=== PATIENT | male | born 1970 | race Caucasian/White ===

== ENCOUNTER 2020-04-30 08:02 | Emergency (ER) | payer OTHER, SELFPAY ==
[2020-04-30] VITALS (16 sets, daily range): BP systolic 141–168; BP diastolic 68–101; PULSE 69–83; RESP 13–23; TEMP 36.3; O2SAT 93–98
--- NOTE | 2020-04-30 08:11 | DI.CT.S_ITS ---
PROCEDURE: CT STROKE INDICATIONS: right eye vision loss TECHNIQUE: Noncontrast 4.5 mm thick angled axial sections acquired from the foramen magnum to the vertex, with coronal reformats. For radiation dose reduction, the following was used: automated exposure control, adjustment of mA and/or kV according to patient size. COMPARISON: None. FINDINGS: Image quality: Excellent. CSF spaces: Basal cisterns are patent. No extra-axial fluid collections. Ventricles are normal in size and shape. Brain: No midline shift. No intracranial masses or hemorrhage. Moderate-sized area of ill-defined hypodensity in the left parietooccipital lobe anteriorly, (4/18). Given the acute right eye vision loss this is most consistent with acute or subacute infarction. There appears to be surrounding vasogenic edema. No hyperdense blood products are seen. Skull and face: Calvarium and visualized facial bones are intact, without suspicious lesions. Sinuses: Visualized sinuses and mastoids are clear. 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 No hyperdense blood products seen. Comment: Findings were discussed with the Dr. Bing Ortiz at the time of dictation. This study fulfills neurological imaging criteria for inclusion or exclusion of acute stroke therapies based on available published neurological imaging guidelines. Dictated by: Javon Ruiz M.D. on 04/30/2020 at 7:34 Approved by: Javon Ruiz M.D. on 04/30/2020 at 7:41
--- NOTE | 2020-04-30 08:12 | DI.CT.S_ITS ---
PROCEDURE: CT ANGIO HEAD AND NECK INDICATIONS: right eye vision loss TECHNIQUE: Pre-contrast 4.5 mm thick sections acquired from the foramen magnum to the vertex. After the administration of intravenous contrast, 1 mm thick sections acquired from the aortic arch through the [place] of [place]. Post-contrast 4.5 mm thick sections then re-acquired from the foramen magnum to the vertex. 3-dimensional [id number] (MIP) and/or volume rendering reformats were acquired of the central intracranial vasculature and neck separately. COMPARISON: [facility], CT, CT STROKE, 04/30/2020, 8:12. FINDINGS: Image quality: Excellent. BRAIN: CSF spaces: Ventricles are normal in size and shape. Basal cisterns are patent. No extra-axial fluid collections. Brain: No midline shift. No intracranial bleeds or masses. Area of ill-defined and irregular hypodensity in the left parietal occipital lobe measures 3.8 x 1.7 cm, (23/15). There appears to be increased enhancement surrounding this abnormality. The abnormality appears somewhat more rounded than expected. Skull and face: Calvarium and facial bones appear intact, without suspicious lesions. Orbits appear normal. Sinuses: Sinuses and mastoids are clear. HEAD CT ANGIOGRAPHY: Anterior circulation: Intracranial internal carotid arteries are normal in size and flow. The flow within the paired anterior cerebral arteries is patent. Left A1 segment EMMANUEL is slightly less prominent than the right. The flow within the middle cerebral arteries is normal and symmetric. The anterior communicating artery is seen. No aneurysms are seen. Posterior circulation: Visualized portions of the vertebral arteries demonstrate normal caliber, and join to form a normal appearing basilar artery. Flow within the posterior cerebral arteries is normal and symmetric. The flow within both the [employer] is slightly less prominent than the MCA. This is likely within normal limits. Left posterior communicating artery is seen. Right posterior communicating artery is hypoplastic or absent. No aneurysms are seen. NECK CT ANGIOGRAPHY: Carotid system: The great vessels demonstrate a conventional anatomy as they arise from the aortic arch. The origins of the common carotid arteries appear patent. The common carotid arteries demonstrate normal caliber and courses. The bifurcation regions are both widely patent. The internal carotid arteries demonstrate normal calibers and courses. Posterior circulation: The origins of the vertebral arteries both appear widely patent. The right vertebral artery is slightly more dominant. The more superior extracranial portions of both vertebral arteries also demonstrate normal courses and calibers. They join to form a normal appearing basilar artery. Soft tissues: Visualized neck soft tissues demonstrate no suspicious abnormalities. Bones: No suspicious bony lesions. Visualized cervical spine appears normally aligned. IMPRESSION: 1. Left parietooccipital lobe focal area of ill-defined hypodensity. Given the acute onset this is suspicious for infarction. However, this has a slightly more rounded appearance and degree of hypodensity is somewhat prominent for timeline. Neoplastic process could have a similar appearance. 2. No large vessel occlusion. 3. No critical stenosis. No dissection. Comment: Findings were discussed with Bing Ortiz at 8:00 AM AKST. Any quantitative measurements of stenosis were performed using NASCET criteria. Dictated by: Javon Ruiz M.D. on 04/30/2020 at 7:45 Approved by: Javon Ruiz M.D. on 04/30/2020 at 8:06
--- NOTE | 2020-04-30 08:20 | ED_ITS ---
HPI - Neuro Symptoms/Deficit General Chief Complaint: Neuro Symptoms/Deficit Stated Complaint: LOST VISION IN RIGHT EYE, LEFT BLURRED Time Seen by Provider: 04/30/20 08:10 Source: patient Mode of arrival: Ambulatory Limitations: no limitations History of Present Illness HPI Narrative: Patient is a 49-year-old male with last known well at 7:00 a.m. presenting with right partial vision loss. He states that he was sitting eating breakfast with the boys when his boss walked in and he lost vision in his right eye. He quickly came to the emergency department. He has no weakness numbness or tingling no difficulty speaking no facial droop. Only medical history is hypertension. Code storke activated. Related Data Home Medications Medication Instructions Recorded Confirmed [REPORTS NO MEDS] #0 04/30/10 Allergies Allergy/AdvReac Type Severity Reaction Status Date / Time No Known Drug Allergies Allergy Verified 04/30/20 08:16 Review of Systems Review of Systems Narrative: GENERAL: Denies chills, fatigue, malaise, fever, sweats, travel HEENT: Visual loss RESPIRATORY: Denies dyspnea, cough, wheezing, hemoptysis, sputum. CARDIOVASCULAR: Denies chest pain, palpitations, orthopnea, edema GASTROINTESTINAL: Denies nausea, vomiting, abdominal pain, diarrhea, constipation, melena. : Denies dysuria, frequency, incontinence, hematuria, urinary retention, flank pain. MUSCULOSKELETAL: Denies weakness, joint pain, or bony pain SKIN: No rash, no erythema, no pruritus NEUROLOGIC: Denies weakness, dizziness, headache, numbness, change in speech, confusion PSYCHIATRIC: No concerning psychosocial issues. 12 point review of systems is negative except for those stated above and HPI Patient History Medical History Hypertension Social History Smoking Status: Current some day smoker Exam Initial Vital Signs Initial Vital Signs: Vital Signs Temperature 97.4 F L 04/30/20 08:05 Pulse Rate 72 04/30/20 08:05 Respiratory Rate 18 04/30/20 08:05 Blood Pressure 166/89 H 04/30/20 08:05 Pulse Oximetry 97 04/30/20 08:05 GENERAL: Well-appearing, well-nourished and in no acute distress. HEENT: Head atraumatic,EOMI, pupils reactive, face symmetric, moist mucous membranes CARDIOVASCULAR: Regular rate and rhythm without murmurs, rubs or gallops. RESPIRATORY: Breath sounds equal bilaterally, no wheezes rales or rhonchi. ABDOMEN: Soft, nontender. Normoactive bowel sounds all 4 quadrants. No guarding or rebound. EXTREMITIES: Normal range of motion, no clubbing or edema. Neurovascularly intact NEUROLOGICAL: Alert and oriented x4.Normal gait and speech. Cranial nerves II through XII grossly intact. Good ovowct-if-mlpd, good yidx-la-gvpv, strength equal bilaterally, no dysarthria or aphasia, sensation in tact to soft touch bilaterally, no visual changes, no facial droop, right partial hemianopsia SKIN: Warm, dry, no laceration, no petechiae, no rashes or lesions. Scores NIH Stroke Scale Level of Conciousness: Alert, keenly responsive Ask month/age: Answers both questions correctly. Open/close eyes, close hand: Performs both tasks correctly Visual meza: Partial hemianopia (right) Facial palsy: Normal symetrical movement Left arm drift: No drift for full 10 sec Right arm drift: No drift for full 10 sec Left leg drift: No drift for full 5 sec Right leg drift: No drift for full 5 sec Limb ataxia: Absent Sensory on face/arms/legs: Normal, no sensory loss Best language: No aphasia, normal Dysarthria: Normal Extinction or inattention: No abnormality Course Orders Ordered: ED Orders 04/30/20 08:11 CT Stroke Stat Urine Drug Screen, Rapid Stat EKG-12 Lead Stat 04/30/20 08:12 CT angio head and neck Stat 04/30/20 08:15 Complete Blood Count AUTO DIFF Stat Comprehensive Metabolic Panel Stat Partial Thromboplastin Time Stat Prothrombin Time INR Stat Troponin & CK Cardiac Panel Stat 04/30/20 08:46 COVID19 Stat 04/30/20 08:59 MR stroke Stat Sodium Chloride (Normal Saline 0.9%) 1,000 mls @ 150 mls/hr IV CONT JIN Last Infusion: 04/30/20 12:52 Dose: 150 mls/hr Documented by: Admin: 04/30/20 08:34 Dose: 150 mls/hr Documented by: PATRICIA Discontinued Medications Acetaminophen (Acetaminophen 325 Mg Tablet) 975 mg PO NOW ONE Stop: 04/30/20 12:41 Last Admin: 04/30/20 12:51 Dose: 975 mg Documented by: CVANCE Dexamethasone (Dexamethasone 10 Mg/Ml Vial) 10 mg IV NOW ONE Stop: 04/30/20 13:12 Last Admin: 04/30/20 13:58 Dose: 10 mg Documented by: CVANCE Levetiracetam 1,000 mg/ Sodium (Chloride) 110 mls @ 440 mls/hr IV NOW ONE Stop: 04/30/20 13:12 Last Admin: 04/30/20 13:58 Dose: 440 mls/hr Documented by: CVANCE Morphine Sulfate (Morphine 2 Mg/Ml Inj) 2 mg IV NOW ONE Stop: 04/30/20 12:41 Last Admin: 04/30/20 12:50 Dose: 2 mg Documented by: YADYANCE Vital Signs Vital signs: Vital Signs - 8 hr 04/30/20 08:05 04/30/20 08:10 04/30/20 08:30 Temperature 97.4 F L Pulse Rate 72 73 79 Respiratory Rate 18 19 23 Blood Pressure 166/89 H Pulse Oximetry 97 97 98 04/30/20 08:31 04/30/20 08:48 04/30/20 09:04 Temperature Pulse Rate 77 77 79 Respiratory Rate 19 13 20 Blood Pressure 154/94 H 147/93 H Pulse Oximetry 98 98 93 04/30/20 09:05 04/30/20 09:15 04/30/20 09:30 Temperature Pulse Rate 74 69 76 Respiratory Rate 19 18 18 Blood Pressure 168/97 H 152/101 H 159/94 H Pulse Oximetry 97 97 98 04/30/20 10:21 04/30/20 10:23 04/30/20 10:30 Temperature Pulse Rate 83 83 77 Respiratory Rate 19 15 Blood Pressure 143/87 H Pulse Oximetry 93 97 97 04/30/20 11:00 04/30/20 12:41 04/30/20 14:21 Temperature Pulse Rate 78 81 76 Respiratory Rate 17 13 20 Blood Pressure 150/96 H 141/68 H Pulse Oximetry 98 96 98 MDM - Neuro Symptoms/Deficit Lab Data Attestation: I reviewed the patient's lab results. Result diagrams: 04/30/20 08:15 04/30/20 08:15 Labs: Lab Results 04/30/20 04/30/20 04/30/20 Range/Units 08:15 08:15 08:15 WBC 4.6 (4.5-11.0) X10^3/uL RBC 4.59 (4.5-5.9) X10^6/uL Hgb 15.0 (13.5-17.5) g/dL Hct 41.9 (41-53) % MCV 91.2 (80-100) fL MCH 32.7 (26-34) PG MCHC 35.9 (30-36) % RDW 13.2 (11.6-14.8) % Plt Count 185 (150-400) X10^3/uL Neut % (Auto) 71.3 (50-75) % Lymph % (Auto) 18.0 L (25-40) % [place] % (Auto) 8.9 (3-14) % Eos % (Auto) 1.1 L (2-4) % Baso % (Auto) 0.7 (0-2) % Neut # (Auto) 3300 (9452-5749) /uL Lymph # (Auto) 800 L (0951-7168) /uL [place] # (Auto) 400 (0-900) /uL Eos # (Auto) 100 (0-450) /uL Baso # (Auto) 0 (0-100) /uL PT 11.7 (10.1-12.7) SECONDS INR 1.0 (0.9-1.3) APTT 35 (26.4-36.2) SECONDS Sodium 137 (137-145) mmol/L Potassium 4.0 (3.4-5.1) mmol/L Chloride 101 (98-107) mmol/L Carbon Dioxide 32 (22-32) mmol/L BUN 20 (9-20) mg/dL Creatinine 1.02 (0.66-1.25) mg/dL Estimated GFR > 60.0 (>60) mL/min BUN/Creatinine Ratio 19.6 (6-22) Glucose 104 H (70-100) mg/dL Calcium 9.7 (8.4-10.2) mg/dL Total Bilirubin 0.7 (0.2-1.3) mg/dL AST 35 (17-59) IU/L ALT 47 (<50) IU/L Alkaline Phosphatase 66 (38-126) U/L Total Creatine Kinase 105 (55-170) U/L CK-MB (CK-2) 0.84 (<2.37) ng/mL CK-MB (CK-2) Rel Index 0.8 L (1.5-5.0) % Troponin I < 0.012 (0.01-0.034) ng/mL Total Protein 8.1 (6.3-8.2) g/dL Albumin 4.8 (3.5-5.0) g/dL Globulin 3.3 (1.7-4.1) g/dL Albumin/Globulin Ratio 1.5 (1.0-2.8) COVID-19 PCR (Negative) 04/30/20 Range/Units 08:46 WBC (4.5-11.0) X10^3/uL RBC (4.5-5.9) X10^6/uL Hgb (13.5-17.5) g/dL Hct (41-53) % MCV (80-100) fL MCH (26-34) PG MCHC (30-36) % RDW (11.6-14.8) % Plt Count (150-400) X10^3/uL Neut % (Auto) (50-75) % Lymph % (Auto) (25-40) % [place] % (Auto) (3-14) % Eos % (Auto) (2-4) % Baso % (Auto) (0-2) % Neut # (Auto) (2513-0090) /uL Lymph # (Auto) (3971-1794) /uL [place] # (Auto) (0-900) /uL Eos # (Auto) (0-450) /uL Baso # (Auto) (0-100) /uL PT (10.1-12.7) SECONDS INR (0.9-1.3) APTT (26.4-36.2) SECONDS Sodium (137-145) mmol/L Potassium (3.4-5.1) mmol/L Chloride (98-107) mmol/L Carbon Dioxide (22-32) mmol/L BUN (9-20) mg/dL Creatinine (0.66-1.25) mg/dL Estimated GFR (>60) mL/min BUN/Creatinine Ratio (6-22) Glucose (70-100) mg/dL Calcium (8.4-10.2) mg/dL Total Bilirubin (0.2-1.3) mg/dL AST (17-59) IU/L ALT (<50) IU/L Alkaline Phosphatase (38-126) U/L Total Creatine Kinase (55-170) U/L CK-MB (CK-2) (<2.37) ng/mL CK-MB (CK-2) Rel Index (1.5-5.0) % Troponin I (0.01-0.034) ng/mL Total Protein (6.3-8.2) g/dL Albumin (3.5-5.0) g/dL Globulin (1.7-4.1) g/dL Albumin/Globulin Ratio (1.0-2.8) COVID-19 PCR Negative (Negative) Point of Care Testing Glucose POC [address] scan - head: Radiologist's Impression: PROCEDURE: CT STROKE INDICATIONS: right eye vision loss TECHNIQUE: Noncontrast 4.5 mm thick angled axial sections acquired from the foramen magnum to the vertex, with coronal reformats. For radiation dose reduction, the following was used: automated exposure control, adjustment of mA and/or kV according to patient size. COMPARISON: None. FINDINGS: Image quality: Excellent. CSF spaces: Basal cisterns are patent. No extra-axial fluid collections. Ventricles are normal in size and shape. Brain: No midline shift. No intracranial masses or hemorrhage. Moderate-sized area of ill-defined hypodensity in the left parietooccipital lobe anteriorly, (4/18). Given the acute right eye vision loss this is most consistent with acute or subacute infarction. There appears to be surrounding vasogenic edema. No hyperdense blood products are seen. Skull and face: Calvarium and visualized facial bones are intact, without susp icious lesions. Sinuses: Visualized sinuses and mastoids are clear. 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 No hyperdense blood products seen. Comment: Findings were discussed with the Dr. Bing Ortiz at the time of dictation. This study fulfills neurological imaging criteria for inclusion or exclusion of acute stroke therapies based on available published neurological imaging guidelines. Dictated by: Javon Ruiz M.D. on 04/30/2020 at 7:34 CTA - brain/neck: Radiologist's Impression: ADDENDUMThis report includes an Addendum and supersedes previous reports for this exam. PROCEDURE: CT ANGIO HEAD AND NECK INDICATIONS: right eye vision loss TECHNIQUE: Pre-contrast 4.5 mm thick sections acquired from the foramen magnum to the vertex. After the administration of intravenous contrast, 1 mm thick sections acquired from the aortic arch through the [place]. Post-contrast 4.5 mm thick sections then re- acquired from the foramen magnum to the vertex. 3-dimensional hdjehqv-inidxnyae-xrcthbrqyd (MIP) and/or volume rendering reformats were acquired of the central intracranial vasculature and neck separately. COMPARISON: [facility], CT, CT STROKE, 04/30/2020, 8:12. FINDINGS: Image quality: Excellent. BRAIN: CSF spaces: Ventricles are normal in size and shape. Basal cisterns are patent. No extra-axial fluid collections. Brain: No midline shift. No intracranial bleeds or masses. Area of ill- defined and irregular hypodensity in the left parietal occipital lobe measures 3.8 x 1.7 cm, (23/15). There appears to be increased enhancement surrounding this abnormality. The abnormality appears somewhat more rounded than expected. Skull and face: Calvarium and facial bones appear intact, without suspicious lesions. Orbits appear normal. Sinuses: Sinuses and mastoids are clear. HEAD CT ANGIOGRAPHY: Anterior circulation: Intracranial internal carotid arteries are normal in size and flow. The flow within the paired anterior cerebral arteries is patent. Left A1 segment EMMANUEL is slightly less prominent than the right. The flow within the middle cerebral arteries is normal and symmetric. The anterior communicating artery is seen. No aneurysms are seen. Posterior circulation: Visualized portions of the vertebral arteries demonstrate normal caliber, and join to form a normal appearing basilar artery. Flow within the posterior cerebral arteries is normal and symmetric. The flow within both the [employer] is slightly less prominent than the MCA. This is likely within normal limits. Left posterior communicating artery is seen. Right posterior communicating artery is hypoplastic or absent. No aneurysms are seen. NECK CT ANGIOGRAPHY: Carotid system: The great vessels demonstrate a conventional anatomy as they arise from the aortic arch. The origins of the common carotid arteries appear patent. The common carotid arteries demonstrate normal caliber and courses. The bifurcation paulo ons are both widely patent. The internal carotid arteries demonstrate normal calibers and courses. Posterior circulation: The origins of the vertebral arteries both appear widely patent. The right vertebral artery is slightly more dominant. The more superior extracranial portions of both vertebral arteries also demonstrate normal courses and calibers. They join to form a normal appearing basilar artery. Soft tissues: Visualized neck soft tissues demonstrate no suspicious abnormalities. Bones: No suspicious bony lesions. Visualized cervical spine appears normally aligned. IMPRESSION: 1. Left parietooccipital lobe focal area of ill-defined hypodensity. Given the acute onset this is suspicious for infarction. However, this has a slightly more rounded appearance and degree of hypodensity is somewhat prominent for timeline. Neoplastic process could have a similar a ppearance. 2. No large vessel occlusion. 3. No critical stenosis. No dissection. Comment: Findings were discussed with Bing Ortiz at 8:00 AM AKST. Any quantitative measurements of stenosis were performed using NASCET criteria. Dictated by: Javon Ruiz M.D. on 04/30/2020 at 7:45 Approved by: Javon Ruiz M.D. on 04/30/2020 at 8:06 ADDENDUM: Mild streaky opacity in the upper lobes partially visualized. Favor atelectasis over pneumonia. Findings discussed with Bing Ortiz. Dictated by: Javon Ruiz M.D. on 04/30/2020 at 10:02 Approved by: Javon Ruiz M.D. on 04/30/2020 at 10:03 Addendum Dictated By:Javon Ruiz MDAddvincenzo Signed By:Addendum Cosigned By:DD/ TD/TT: 04/30/20 PROCEDURE: CT ANGIO HEAD AND NECK INDICATIONS: right eye vision loss TECHNIQUE: Pre-contrast 4.5 mm thick sections acquired from the foramen magnum to the vertex. After the administration of intravenous contrast, 1 mm thick sections acquired from the aortic arch through the [place]. Post-contrast 4.5 mm thick sections then re- acquired from the foramen magnum to the vertex. 3-dimensional nnyzamo-rcgtqhjgi-rzzjgkxnrh (MIP) and/or volume rendering reformats were acquired of the central intracranial vasculature and neck separately. COMPARISON: [facility], CT, CT STROKE, 04/30/2020, 8:12. FINDINGS: Image quality: Excellent. BRAIN: CSF spaces: Ventricles are normal in size and shape. Basal cisterns are pat ent. No extra-axial fluid collections. Brain: No midline shift. No intracranial bleeds or masses. Area of ill- defined and irregular hypodensity in the left parietal occipital lobe measures 3.8 x 1.7 cm, (23/15). There appears to be increased enhancement surrounding this abnormality. The abnormality appears somewhat more rounded than expected. Skull and face: Calvarium and facial bones appear intact, without suspicious lesions. Orbits appear normal. Sinuses: Sinuses and mastoids are clear. HEAD CT ANGIOGRAPHY: Anterior circulation: Intracranial internal carotid arteries are normal in size and flow. The flow within the paired anterior cerebral arteries is patent. Left A1 segment EMMANUEL is slightly less prominent than the right. The flow within the middle cerebral arteries is normal and symmetric. The anterior communicating artery is seen. No aneurysms are seen. Posterior circulation: Visualized portions of the vertebral arteries demonstrate normal caliber, and join to form a normal appearing basilar artery. Flow within the posterior cerebral arteries is normal and symmetric. The flow within both the [employer] is slightly less prominent than the MCA. This is likely within normal limits. Left posterior communicating artery is seen. Right posterior communicating artery is hypoplastic or absent. No aneurysms are seen. NECK CT ANGIOGRAPHY: Carotid system: The great vessels demonstrate a conventional anatomy as they arise from the aortic arch. The origins of the common carotid arteries appear patent. The common carotid arteries demonstrate normal caliber and courses. The bifurcation regions are both widely patent. The internal carotid arteries demonstrate normal calibers and courses. Posterior circulation: The origins of the vertebral arteries both appear widely patent. The right vertebral artery is slightly more dominant. The more superior extracranial portions of both vertebral arteries also demonstrate normal courses and caliber s. They join to form a normal appearing basilar artery. Soft tissues: Visualized neck soft tissues demonstrate no suspicious abnormalities. Bones: No suspicious bony lesions. Visualized cervical spine appears normally aligned. IMPRESSION: 1. Left parietooccipital lobe focal area of ill-defined hypodensity. Given the acute onset this is suspicious for infarction. However, this has a slightly more rounded appearance and degree of hypodensity is somewhat prominent for timeline. Neoplastic process could have a similar appearance. 2. No large vessel occlusion. 3. No critical stenosis. No dissection. Comment: Findings were discussed with Bing Ortiz at 8:00 AM AKST. Any quantitative measurements of stenosis were performed using NASCET criteria. Dictated by: Javon Ruiz M.D. on 04/30/2020 at 7:45 MR Stroke: Radiologist's Impression: PROCEDURE: MR STROKE Pre- and post-contrast brain MRI, non-contrast brain MR angiogram, pre- and postcontrast neck MR angiogram INDICATIONS: ? tumor vs CVA TECHNIQUE: Brain: Noncontrast axial T1 spin echo, axial T2 fast spin echo, sagittal and axial FLAIR, coronal T2 fast spin echo, axial gradient echo, axial diffusion and ADC through the brain. After the administration of contrast, axial 3D VIBE of the cranial vasculature and brain. Brain MRA: Non-contrast 3-D time of flight MR angiogram, with multiple knrnlal-mdaqwzvis-pgkaqsgppo (MIP) reformats performed. Neck MRA: Axial and sagittal TruFISP through the neck. Coronal dynamic MR angiogram during administration of contrast in the arterial and venous phases, with 3-dimenstional qcdqwoe-hejdzroiq-cvszmhdwam (MIP) reformats constructed from subtraction images. COMPARISON: [facility], CT, CT ANGIO HEAD AND NECK, 04/30/2020, 8:12. [facility], CT, CT STROKE, 04/30/2020, 8:12. FINDINGS: Image quality: Excellent. BRAIN: CSF spaces: Ventricles are normal in size and shape. Basal cisterns are patent. No extra-axial fluid collections. Brain: Left parietooccipital lesion with peripheral enhancement measuring 3.9 x 3.1 x 2 cm. The lesion demonstrates central T2 hyperintensity without restricted diffusion. This is compatible with necrosis rather than acute infarction. No intrinsic T1 hyperintense signal There is moderate surrounding edema signal. There are a few foci of enhancement posteriorly. The lesion abuts the left posterior horn. No additional lesions. No areas of restricted diffusion to suggest acute infarction. No acute hemorrhage demonstrated. Skull and face: Calvarial marrow signal is normal. Orbits appear normal. Sinuses: Minimal mucosal thickening in the inferior maxillary sinuses. Sinuses and mastoids are otherwise clear. BRAIN MR ANGIOGRAM: Anterior circulation: Intracranial internal carotid arteries are normal in size and enhancement. The flow within the paired anterior cerebral arteries is normal and symmetric. The flow within the middle cerebral arteries is normal and symmetric. The anterior communicating artery is seen. No stenoses, occlusions, or aneurysms. Posterior circulation: The visualized portions of the vertebral arteries demonstrate normal caliber, and join to form a normal appearing basilar artery. The flow within the posterior cerebral arteries is normal and symmetric. No stenoses, occlusions, or aneurysms. NECK MR ANGIOGRAM: Carotids: Great vessels demonstrate a conventional anatomy as they arise from the aortic arch. The origins of the common carotid arteries appear patent. The calibers and courses of both common carotid arteries are normal. The bifurcation regions appear normal bilaterally. The internal carotid arteries demonstrate normal course and caliber. Posterior circulation: The origins of the vertebral arteries appear patent. More superior portions of both vertebral arteries demonstrate normal course and caliber, and join to form a normal appearing basilar artery. Miscellaneous: Subclavian arteries appear patent. Pre-contrast images through the neck show no soft tissue abnormalities. IMPRESSION: BRAIN MRI: Left parietal occipital lobe lesion measuring 3.9 cm demonstrates peripheral enhancement and central necrosis. 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 A few adjacent enhancing satellite nodules. No acute infarct. BRAIN MR ANGIOGRAM: No large vessel occlusion. NECK MR ANGIOGRAM: No large vessel occlusion. Dictated by: Javon Ruiz M.D. on 04/30/2020 at 9:23 ECG Data Attestation: I personally reviewed and interpreted this ECG as follows: Prior ECG tracings: not available for review Interpretation: Normal sinus rhythm rate 74 p.r. interval 160 QRS 96 QTC 424 MDM Narrative Medical decision making narrative: 8:[address] Reed consult it. He video did in his to examine patient. Head CT came back Radiology called me personally and said that there is area in the left occipital lobe concern for possible tumor. 8:[address] Reed has reviewed images at this time does not think tPA is appropriate a tumor versus CVA. She not see evidence of CTA on noncontrast head head CT in this time frame. Recommends MRI. Head MRI confirms all large brain mass. [facility] was called took some time for them to call back. [id number] Dr. 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 Patient's pain improved with morphine. He did get sleepy. He has had no other progression of neurologic symptoms while in the emergency department. Discharge Plan Departure Patient Disposition: [facility] Clinical Impression: Brain mass Prescriptions: No Action [REPORTS NO MEDS] Qty: 0 RF: 0
[2020-04-30 08:23] LABS: Add Manual Diff / Slide Review NO; Basophils Absolute Auto 0 /uL (0-100); Basophils Percent Auto 0.7 % (0-2); Eosinophils Absolute Auto 100 /uL (0-450); Eosinophils Percent Auto 1.1 % (2-4); Hematocrit 41.9 % (41-53); Lymphocytes Absolute Auto 800 /uL (1100-4500); Mean Corpuscular HGB Conc 35.9 % (30-36); Mean Corpuscular Hemoglobin 32.7 PG (26-34); Mean Corpuscular Volume 91.2 fL (80-100); Monocytes Absolute Auto 400 /uL (0-900); Monocytes Percent Auto 8.9 % (3-14); Neutrophils Absolute Auto 3300 /uL (1500-7000); Neutrophils Percent Auto 71.3 % (50-75); Platelet Count 185 X10^3/uL (150-400); Red Blood Cell Count 4.59 X10^6/uL (4.5-5.9); Red Cell Distribution Width 13.2 % (11.6-14.8); White Blood Cell Count 4.6 X10^3/uL (4.5-11.0)
[2020-04-30 08:29] LABS: Prothrombin Time 11.7 SECONDS (10.1-12.7)
[2020-04-30 08:31] LABS: PTT Partial Thromboplastin Tim 35 SECONDS (26.4-36.2)
[2020-04-30 08:34] LABS: Alanine Aminotransferase 47 IU/L (<50); Albumin 4.8 g/dL (3.5-5.0); Albumin Globulin Ratio 1.5 (1.0-2.8); Alkaline Phosphatase 66 U/L (38-126); Aspartate Aminotransferase 35 IU/L (17-59); BUN Creatinine Ratio 19.6 (6-22); Bilirubin Total 0.7 mg/dL (0.2-1.3); Blood Urea Nitrogen 20 mg/dL (9-20); Calcium 9.7 mg/dL (8.4-10.2); Carbon Dioxide 32 mmol/L (22-32); Chloride 101 mmol/L (98-107); Creatine Kinase 105 U/L (55-170); Estimated Glomerular Filt Rate > 60.0 mL/min (>60); Globulin 3.3 g/dL (1.7-4.1); Glucose 104 mg/dL (70-100); HEMOLYSIS < 15 (0-50); Sodium 137 mmol/L (137-145); Total Protein 8.1 g/dL (6.3-8.2)
[2020-04-30] MEDS: SODIUM CHLORIDE 0.9% 1,000 ML 150 ML IV (08:34)
[2020-04-30 08:45] LABS: Troponin I < 0.012 ng/mL (0.01-0.034)
[2020-04-30 08:49] LABS: CKMB % Relative Index 0.8 % (1.5-5.0); Creatine Kinase MB 0.84 ng/mL (<2.37)
--- NOTE | 2020-04-30 08:59 | DI.MRI.S_ITS ---
PROCEDURE: MR STROKE Pre- and post-contrast brain MRI, non-contrast brain MR angiogram, pre- and postcontrast neck MR angiogram INDICATIONS: ? tumor vs CVA TECHNIQUE: Brain: Noncontrast axial T1 spin echo, axial T2 fast spin echo, sagittal and axial FLAIR, coronal T2 fast spin echo, axial gradient echo, axial diffusion and ADC through the brain. After the administration of contrast, axial 3D VIBE of the cranial vasculature and brain. Brain MRA: Non-contrast 3-D time of flight MR angiogram, with multiple hfthnkk-sbqfnlokn-ycaimcikrf (MIP) reformats performed. Neck MRA: Axial and sagittal TruFISP through the neck. Coronal dynamic MR angiogram during administration of contrast in the arterial and venous phases, with 3-dimenstional uhyjney-zkdpqpfzn-dtrjsdhuvc (MIP) reformats constructed from subtraction images. COMPARISON: [facility], CT, CT ANGIO HEAD AND NECK, 04/30/2020, 8:12. [facility], CT, CT STROKE, 04/30/2020, 8:12. FINDINGS: Image quality: Excellent. BRAIN: CSF spaces: Ventricles are normal in size and shape. Basal cisterns are patent. No extra-axial fluid collections. Brain: Left parietooccipital lesion with peripheral enhancement measuring 3.9 x 3.1 x 2 cm. The lesion demonstrates central T2 hyperintensity without restricted diffusion. This is compatible with necrosis rather than acute infarction. No intrinsic T1 hyperintense signal There is moderate surrounding edema signal. There are a few foci of enhancement posteriorly. The lesion abuts the left posterior horn. No additional lesions. No areas of restricted diffusion to suggest acute infarction. No acute hemorrhage demonstrated. Skull and face: Calvarial marrow signal is normal. Orbits appear normal. Sinuses: Minimal mucosal thickening in the inferior maxillary sinuses. Sinuses and mastoids are otherwise clear. BRAIN MR ANGIOGRAM: Anterior circulation: Intracranial internal carotid arteries are normal in size and enhancement. The flow within the paired anterior cerebral arteries is normal and symmetric. The flow within the middle cerebral arteries is normal and symmetric. The anterior communicating artery is seen. No stenoses, occlusions, or aneurysms. Posterior circulation: The visualized portions of the vertebral arteries demonstrate normal caliber, and join to form a normal appearing basilar artery. The flow within the posterior cerebral arteries is normal and symmetric. No stenoses, occlusions, or aneurysms. NECK MR ANGIOGRAM: Carotids: Great vessels demonstrate a conventional anatomy as they arise from the aortic arch. The origins of the common carotid arteries appear patent. The calibers and courses of both common carotid arteries are normal. The bifurcation regions appear normal bilaterally. The internal carotid arteries demonstrate normal course and caliber. Posterior circulation: The origins of the vertebral arteries appear patent. More superior portions of both vertebral arteries demonstrate normal course and caliber, and join to form a normal appearing basilar artery. Miscellaneous: Subclavian arteries appear patent. Pre-contrast images through the neck show no soft tissue abnormalities. IMPRESSION: BRAIN MRI: Left parietal occipital lobe lesion measuring 3.9 cm demonstrates peripheral enhancement and central necrosis. 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 A few adjacent enhancing satellite nodules. No acute infarct. BRAIN MR ANGIOGRAM: No large vessel occlusion. NECK MR ANGIOGRAM: No large vessel occlusion. Dictated by: Javon Ruiz M.D. on 04/30/2020 at 9:23 Approved by: Javon Ruiz M.D. on 04/30/2020 at 9:35
[2020-04-30 09:07] LABS: COVID19 -Nasal RAPID Negative (Negative)
[2020-04-30] MEDS: MORPHINE 2 MG/ML INJ IV (12:50)
[2020-04-30] MEDS: ACETAMINOPHEN 325 MG TABLET 975 MG PO (12:51)
[2020-04-30] MEDS: DEXAMETHASONE 10 MG/ML VIAL IV (13:58)
[2020-04-30] MEDS: levETIRAcetam 1,000 MG in SODIUM CHLORIDE 0.9% 100 ML 440 ML IV (13:58)
== END 2020-04-30 14:32 | disposition short-term general hospital (02) ==
PROVIDERS: Emergency Provider Emergency Medicine
DX: G93.89 Other specified disorders of brain (principal); I10 Essential (primary) hypertension
CPT/HCPCS: 36415; 70450; 70496; 70498; 70548; 70553; 80053; 82550; 82553; 82962; 84484; 85025; 85610; 85730; 87635; 93005; 93010; 96361; 96365; 96375; 99284; 99285; Q3014; J1100; J1953; J2270; Q9967

== ENCOUNTER → 2020-05-11 10:12 | Outpatient (CLI) | payer BC, SELFPAY ==
[2020-05-11 11:34] LABS: Alanine Aminotransferase 243 IU/L (<50); Albumin 4.8 g/dL (3.5-5.0); Albumin Globulin Ratio 1.5 (1.0-2.8); Alkaline Phosphatase 71 U/L (38-126); Aspartate Aminotransferase 61 IU/L (17-59); BUN Creatinine Ratio 28.8 (6-22); Bilirubin Total 0.4 mg/dL (0.2-1.3); Blood Urea Nitrogen 23 mg/dL (9-20); Calcium 9.8 mg/dL (8.4-10.2); Carbon Dioxide 30 mmol/L (22-32); Chloride 94 mmol/L (98-107); Estimated Glomerular Filt Rate > 60.0 mL/min (>60); Globulin 3.2 g/dL (1.7-4.1); Glucose 95 mg/dL (70-100); HEMOLYSIS < 15 (0-50); Potassium 5.1 mmol/L (3.4-5.1); Sodium 131 mmol/L (137-145)
== END ==
PROVIDERS: PCP Family Medicine; Referring Provider Family Medicine; Visit Provider Family Medicine
DX: E87.1 Hypo-osmolality and hyponatremia (principal)
CPT/HCPCS: 36415; 80053

== ENCOUNTER → 2020-05-30 09:34 | Outpatient (CLI) | payer BC, SELFPAY ==
[2020-05-30 10:49] LABS: Alanine Aminotransferase 56 IU/L (<50); Albumin 4.7 g/dL (3.5-5.0); Albumin Globulin Ratio 1.8 (1.0-2.8); Alkaline Phosphatase 61 U/L (38-126); Aspartate Aminotransferase 30 IU/L (17-59); BUN Creatinine Ratio 15.4 (6-22); Bilirubin Total 0.7 mg/dL (0.2-1.3); Blood Urea Nitrogen 14 mg/dL (9-20); Calcium 10.1 mg/dL (8.4-10.2); Carbon Dioxide 35 mmol/L (22-32); Chloride 100 mmol/L (98-107); Estimated Glomerular Filt Rate > 60.0 mL/min (>60); Globulin 2.6 g/dL (1.7-4.1); Glucose 98 mg/dL (70-100); HEMOLYSIS < 15 (0-50); Potassium 4.9 mmol/L (3.4-5.1); Sodium 138 mmol/L (137-145); Total Protein 7.3 g/dL (6.3-8.2)
== END ==
PROVIDERS: PCP Family Medicine; Referring Provider Psychiatry & Neurology Neurology; Visit Provider Family Medicine
DX: I10 Essential (primary) hypertension (principal)
CPT/HCPCS: 36415; 80053

== ENCOUNTER → 2020-06-23 10:39 | Outpatient (CLI) | payer BC, SELFPAY ==
--- NOTE | 2020-06-23 10:42 | DI.US.S_ITS ---
PROCEDURE: US ABDOMEN LIMITED INDICATIONS: Elevated liver function tests TECHNIQUE: Real-time focused scanning was performed of the abdomen, with image documentation. COMPARISON: None. FINDINGS: Gallbladder is unremarkable. No gallstones. No gallbladder wall thickening. No Estrada sign. No biliary ductal dilatation. Common bile duct measures 2 mm. Diffuse increased echogenicity of the liver likely represents hepatic steatosis. IMPRESSION: 1. No evidence of gallbladder disease. 2. Hepatic steatosis. Dictated by: Abdoulaye Goodman M.D. on 06/23/2020 at 11:48 Approved by: Abdoulaye Goodman M.D. on 06/23/2020 at 11:50
== END ==
PROVIDERS: PCP Family Medicine; Referring Provider Family Medicine; Visit Provider Family Medicine
DX: R79.89 Other specified abnormal findings of blood chemistry (principal); K76.0 Fatty (change of) liver, not elsewhere classified
CPT/HCPCS: 76705

== ENCOUNTER 2020-09-02 04:45 | Emergency (ER) | payer BC, SELFPAY ==
--- NOTE | 2020-09-02 04:52 | ED_ITS ---
HPI - General Adult General Chief complaint: Extremity Problem,Nontraumatic Stated complaint: Gout pain Time Seen by Provider: 09/02/20 04:47 Source: patient Mode of arrival: Ambulatory Limitations: no limitations History of Present Illness HPI narrative: Patient is a 49-year-old male. Has a history of a glioblastoma. Is currently undergoing active chemotherapy treatment. His next dose of chemotherapy is later today. He states that for the past 6 weeks he has had discomfort in his left elbow. He has had a history of gout in the past but is only been in his toes. He states that the pain in his left elbow feels very much like his prior gout history. Approximately 14 days ago he started taking some allopurinol that he had left over from his prior gout attacks. He states that his symptoms were improving slightly. He went to the walk-in clinic because he ran out of the allopurinol. Review that note shows that there was some significant has intensity of starting him on steroids because of his chemo therapy history so he was just continued on the allopurinol. He arrives to the emergency department today for continued symptoms. He denies any fevers. Pain is isolated to his left elbow. Related Data Home Medications Medication Instructions Recorded Confirmed acetaminophen 500 mg tablet 500 mg PO tab 05/11/20 08/23/20 allopurinol PO 05/11/20 08/23/20 dexamethasone 1 mg tablet 1 mg PO tab 05/11/20 08/23/20 lisinopril 10 mg tablet 10 mg PO DAILY 05/11/20 08/23/20 magnesium citrate 30 ml PO ml 05/11/20 08/23/20 melatonin 3 mg tablet 3 mg PO tab 05/11/20 08/23/20 omeprazole 20 mg capsule,delayed 20 mg PO cap 05/11/20 08/23/20 release oxycodone 5 mg tablet 5 mg PO tab 05/11/20 08/23/20 polyethylene glycol 3350 17 17 g PO g 05/11/20 08/23/20 gram/dose oral powder sennosides 8.6 mg tablet 8.6 mg PO tab 05/11/20 08/23/20 Previous Rx's Medication Instructions Recorded allopurinol 100 mg tablet 100 mg PO BID #30 tab 08/23/20 prednisone 40 mg PO DAILY #30 tab 09/02/20 Allergies Allergy/AdvReac Type Severity Reaction Status Date / Time bee venom protein (honey bee) Allergy Severe anaphylaxis Verified 08/23/20 11:50 Review of Systems Constitutional Constitutional: Denies fever(s) Musculoskeletal Comments: Left elbow pain Integumentary/Breasts Comments: Slight redness around the left elbow Neurologic Comments: No neurologic symptoms left upper extremity Hematologic/Lymphatic On Anticoagulants: No Allergic/Immunologic Allergic/Immunologic: Denies urticaria Patient History Medical History Elevated liver function tests Glioblastoma multiforme of occipital lobe Gout (~2009) Hypertension (~2014) Hyponatremia Surgical History (Updated 05/27/20 @ 21:40 by Natividad Preston) Anesthesia History of brain surgery (~05/03/20) Family History (Updated 05/27/20 @ 21:46 by Natividad Preston) Father History of heart disease Hypertension Brother History of heart disease History of splenectomy Brother Mental health problem Brother Kidney failure Kidney transplanted History of renal dialysis Grandfather Alzheimer's disease Grandmother Accident Grandfather History of heart attack Grandmother History of heart attack Social History Smoking Status: Former smoker Tobacco: How many years used: 5 Smokeless tobacco user: chewing tobacco and other quit status: considering quitting alcohol intake: former substance use type: does not use Smoking Status: Former smoker tobacco type: smokeless tobacco alcohol intake frequency: 0-2 drinks per day Alcohol type: hard liquor Substance Use Type: does not use Exam Initial Vital Signs Initial Vital Signs: Vital Signs Temperature 98.8 F 09/02/20 04:55 Pulse Rate 82 09/02/20 04:55 Respiratory Rate 17 09/02/20 04:55 Blood Pressure 128/89 09/02/20 04:55 Pulse Oximetry 98 09/02/20 04:55 Const General: cooperative and comfortable Limitations: mental status not altered Resp Effort & Inspection: normal respiratory effort Cardio Rate: regular rate Skin Other: Slight redness and warmth located over the olecranon process on the left elbow. No drainage. No breaks in the skin. Neuro Other: No neurologic changes left upper extremity Extrem Other: Patient does have warmth and slight swelling located around his left elbow. Does seem to be fairly tender to the touch. He has limited range of motion because of the discomfort. Psych Appearance: grossly normal and well kempt Course Orders Ordered: Discontinued Medications Hydrocodone Bitart/Acetaminophen (Hydrocodone/Acet 5/325 Tablet) 1 tab PO NOW ONE Stop: 09/02/20 05:23 Hydrocodone Bitart/Acetaminophen (Hydrocodone/Acet 5/325 Prepack) 1 bottle MISC SEEINSTR ONE Stop: 09/02/20 05:23 Prednisone (Prednisone 20 Mg Tablet) 40 mg PO NOW ONE Stop: 09/02/20 05:23 Vital Signs Vital signs: Vital Signs - 8 hr 09/02/20 04:55 Temperature 98.8 F Pulse Rate 82 Respiratory Rate 17 Blood Pressure 128/89 Pulse Oximetry 98 Medical Decision Making MDM Narrative Medical decision making narrative: He is afebrile. Is nontoxic. His symptoms that brought him into the emergency department today are localized to his left elbow and they have been there for the past 6 weeks. He has never had gout in his elbow before but he states this feels very much like his gout attack that he has had in his toes. He actually was getting some improvement when he initially started the allopurinol but he thinks that in the past he has needed steroids. He denies any trauma to the area. Considered other diagnosis such as bursitis, septic bursitis, septic joint however given his history, his presentation, the length of time that he has had symptoms the feel that gout is most likely the cause of his symptoms today. I do not feel that a joint aspiration is in his best interest. He does have some redness over the skin. There is some swelling but not a large amount not feel that putting a needle in to his joint through his skin in someone who is already immunosuppressed because of the chemotherapy would not be in his best interest peer I did discuss the case with his oncologist who stated that steroids would not affect his chemotherapy regimen. He was given his 1st dose of steroids here in the ER and a prescription was electronically transmitted for the remainder of the course. He was also given pain medication. Is given return precautions and follow-up instructions. He expressed understanding and agreement. Discharge Plan Departure Patient Disposition: Home Clinical Impression: Gout Instructions: DI for Gout Activity Restrictions/Additional Instructions: Continue all of your medications as directed. Continue taking your allopurinol. You were given a prescription for steroids. Your 1st dose was given here in the emergency department. You are to take 40 mg (2 tablets) a day until you start to see a definite improvement in your symptoms. I would recommend that you are on the 40 mg for at least 3-5 days even if you start to see improvement sooner than this. After you start to see a definite improvement in your symptoms then decrease your prednisone to 20 mg (1 tablet) a day for 5 days and then take 10 mg (1/2 tablet) a day for 5 days. Keep your scheduled oncology appointment for later today. Return to the emergency department for any new or worsening symptoms Prescriptions: New prednisone 20 mg tablet 40 mg PO DAILY Qty: 30 RF: 1 No Action allopurinol 100 mg tablet 100 mg PO BID Qty: 30 RF: 0 sennosides 8.6 mg tablet 8.6 mg PO RF: 0 lisinopril 10 mg tablet 10 mg PO DAILY RF: 0 allopurinol PO RF: 0 oxycodone 5 mg tablet 5 mg PO RF: 0 polyethylene glycol 3350 17 gram/dose powder 17 g PO RF: 0 magnesium citrate Solution 30 ml PO RF: 0 omeprazole 20 mg capsule,delayed release(DR/EC) 20 mg PO RF: 0 dexamethasone 1 mg tablet 1 mg PO RF: 0 acetaminophen 500 mg tablet 500 mg PO RF: 0 melatonin 3 mg tablet 3 mg PO RF: 0 Referrals: Rex Hyman, [Primary Care Provider] -
[2020-09-02 04:55] VITALS: BP 128/89; PULSE 82; RESP 17; TEMP 37.1; O2SAT 98; BMI 29.5
[2020-09-02] MEDS: HYDROCODONE/ACET 5/325 TABLET 1 TAB PO (05:28)
[2020-09-02] MEDS: HYDROCODONE/ACET 5/325 PREPACK 1 BOTTLE MISC (05:28)
[2020-09-02] MEDS: predniSONE 20 MG TABLET 40 MG PO (05:28)
[2020-09-02 05:37] VITALS: BP 148/106; PULSE 89; RESP 20; O2SAT 98
== END 2020-09-02 05:39 | disposition home or self-care (01) ==
PROVIDERS: Emergency Provider Emergency Medicine; PCP Family Medicine
DX: M10.9 Gout, unspecified (principal)
CPT/HCPCS: 99283

== ENCOUNTER → 2020-09-29 16:28 | Outpatient (CLI) | payer BC, SELFPAY ==
[2020-09-29 18:17] LABS: Uric Acid 6.3 mg/dL (3.5-8.5)
== END ==
PROVIDERS: PCP Family Medicine; Referring Provider Registered Nurse; Visit Provider Registered Nurse
DX: M10.9 Gout, unspecified (principal)
CPT/HCPCS: 36415; 84550

== ENCOUNTER 2021-10-04 18:15 | Emergency (ER) | payer BC, SELFPAY ==
[2021-10-04 18:16] VITALS: BP 122/74; PULSE 110; RESP 20; TEMP 36.8; O2SAT 94; BMI 27.6
--- NOTE | 2021-10-04 18:23 | DI.CT.S_ITS ---
PROCEDURE: CT HEAD/BRAIN WO CON INDICATIONS: Hx of brain CA with increase in seizure activity today TECHNIQUE: Noncontrast 4.5 mm thick angled axial sections acquired from the foramen magnum to the vertex, with coronal and sagittal reformats. For radiation dose reduction, the following was used: automated exposure control, adjustment of mA and/or kV according to patient size. COMPARISON: [facility], CT, CT HEAD WITHOUT CONTRAST, 02/17/2021, 14:18. Outside Film, MR, MR BRAIN WITH/WITHOUT CONTRAST, 09/07/2021, 9:19. [facility], MR, MR BRAIN WITH/WITHOUT CONTRAST, 07/11/2021, 11:53. FINDINGS: Image quality: Significant artifact is noted overlying significant portions of the brain secondary to radiation trocar placement. Significant artifact is present obscuring the majority of the intracranial contents for evaluation. Partially visualized cystic focus is noted in the left posterior parietal occipital lobe as previously identified. Other limited visualized portions of the brain demonstrate no acute hemorrhage. Fluid levels present in the right maxillary sinus with minimal mucosal thickening in the left sphenoid sinus. IMPRESSION: Markedly limited limited evaluation secondary to artifact as above. Visualized portions of the brain demonstrate no acute change. Partially visualized cystic focus is noted in the posterior left parietal occipital lobe as previously present. Dictated by: Evon Pierson M.D. on 10/04/2021 at 18:58 Approved by: Evon Pierson M.D. on 10/04/2021 at 19:00
--- NOTE | 2021-10-04 18:24 | ED_ITS ---
HPI - General Adult General Chief complaint: Seizure Stated complaint: Seizures, hx brain ca Time Seen by Provider: 10/04/21 18:19 Source: family and EMS Mode of arrival: EMS History of Present Illness HPI narrative: Patient is a 50-year-old male. Has a known history of glioblastoma. Is being followed by Neurology at the [facility]. Is currently getting chemotherapy. Also has a history of seizures. Is on Keppra. Is reported by EMS they were called by the patient's family after he had a seizure earlier today. EMS reports that he also had a seizure in the ambulance in route. He resolved on its own. He did not receive any medications to stop the seizure. Patient was unable to provide any HPI or review of systems. Patient's eventually arrived at bedside stating that today was the 1st day when his Keppra medication was decreased from 3000 mg a day to 2000 mg a day. Apparently this was because of a high Keppra level that was ordered by a his neurologist. They are scheduled to have chemotherapy again tomorrow. Related Data Home Medications Medication Instructions Recorded Confirmed acetaminophen 500 mg tablet 500 mg PO tab 05/11/20 10/17/20 melatonin 3 mg tablet 3 mg PO tab 05/11/20 10/17/20 levetiracetam 750 mg tablet 750 mg PO BID 09/29/20 10/17/20 (Keppra) Previous Rx's Medication Instructions Recorded prednisone 20 mg tablet 40 mg PO DAILY #14 tab 10/17/20 allopurinol 300 mg tablet See Rx Instructions .ROUTE 09/19/21 .COMPLEX #90 tab fluoxetine 10 mg capsule See Rx Instructions .ROUTE 09/19/21 .COMPLEX #90 cap naproxen 500 mg tablet See Rx Instructions .ROUTE 10/04/21 .COMPLEX #60 tab Allergies Allergy/AdvReac Type Severity Reaction Status Date / Time bee venom protein (honey bee) Allergy Severe anaphylaxis Verified 10/17/20 16:23 Review of Systems Review of Systems ROS Unobtainable: Unobtainable due to medical condition Patient History Medical History Depression Elevated liver function tests Glioblastoma multiforme of occipital lobe Gout (~2009) Hypertension (~2014) Hyponatremia Surgical History Anesthesia History of brain surgery (~05/03/20) Family History Father History of heart disease Hypertension Brother History of heart disease History of splenectomy Brother Mental health problem Brother Kidney failure Kidney transplanted History of renal dialysis Grandfather Alzheimer's disease Grandmother Accident Grandfather History of heart attack Grandmother History of heart attack Social History Smoking Status: Former smoker Tobacco: How many years used: 5 Smokeless tobacco user: chewing tobacco and other quit status: considering quitting alcohol intake: former substance use type: does not use Smoking Status: Former smoker tobacco type: smokeless tobacco alcohol intake frequency: holidays/special occasions only Alcohol type: hard liquor Substance Use Type: does not use Exam Initial Vital Signs Initial Vital Signs: Vital Signs Temperature 98.3 F 10/04/21 18:16 Pulse Rate 110 H 10/04/21 18:16 Respiratory Rate 20 10/04/21 18:16 Blood Pressure 122/74 10/04/21 18:16 Pulse Oximetry 94 10/04/21 18:16 Const General: well developed HENMT Other HENMT:: Surgical scar that is well-healed on the posterior aspect of his scalp. No other trauma noted. Eyes General: Yes appearance normal, both eyes and all related structures Resp Effort & Inspection: normal respiratory effort Auscultation: clear to auscultation bilaterally Cardio Rate: tachycardic Rhythm: regular rhythm GI Inspection: normal to inspection and non-distended Skin General: no rashes or lesions noted Neuro Other: Patient is breathing on his own. Does move all 4 extremities but not to command. Words that he does say are understandable. Extrem Other: Patient does move all 4 extremities spontaneously but does not move them to command. There are no deformities noted. Psych Appearance: well kempt Scores GCS [place] coma scale eye opening: Spontaneous [place] coma scale verbal response: Words [place] coma scale motor response: Localising [place] coma scale total score: 12 Course Orders Ordered: ED Orders 10/04/21 18:23 CT head/brain wo con Stat 10/04/21 18:35 Complete Blood Count AUTO DIFF Stat Comprehensive Metabolic Panel Stat Ethanol (ETOH) Stat Levetiracetam Keppra Stat Lipase Stat 10/04/21 19:02 CT head/brain wo con Stat Discontinued Medications Sodium Chloride (Normal Saline 0.9%) 1,000 mls @ 125 mls/hr IV CONT ANN-MARIE Levetiracetam 1,000 mg/ Sodium (Chloride) 110 mls @ 440 mls/hr IV NOW ONE Stop: 10/04/21 18:23 Last Infusion: 10/04/21 19:01 Dose: 0 mls/hr Documented by: Admin: 10/04/21 18:45 Dose: 440 mls/hr Documented by: BENJAMIN Vital Signs Vital signs: Vital Signs - 8 hr 10/04/21 18:16 10/04/21 22:13 Temperature 98.3 F Pulse Rate 110 H 88 Respiratory Rate 20 Blood Pressure 122/74 Pulse Oximetry 94 Medical Decision Making Lab Data Lab results reviewed: Yes I reviewed the patient's lab results. Result diagrams: 10/04/21 18:35 10/04/21 18:35 Labs: Lab Results 10/04/21 10/04/21 Range/Units 18:35 18:35 WBC 5.9 (4.5-11.0) X10^3/uL RBC 3.50 L (4.5-5.9) X10^6/uL Hgb 12.2 L (13.5-17.5) g/dL Hct 34.9 L (41-53) % MCV 99.7 (80-100) fL MCH 34.9 H (26-34) PG MCHC 35.0 (30-36) % RDW 19.8 H (11.6-14.8) % Plt Count 224 (150-400) X10^3/uL Neut % (Auto) Not Reportable Lymph % (Auto) Not Reportable [place] % (Auto) Not Reportable Eos % (Auto) Not Reportable Baso % (Auto) Not Reportable Lymph # (Auto) Not Reportable [place] # (Auto) Not Reportable Baso # (Auto) Not Reportable Total Counted 100 Seg Neutrophils % 62.0 (38-70) % Band Neutrophils % 7.0 (3-7) % Lymphocytes % (Manual) 25.0 (25-45) % Monocytes % (Manual) 4.0 (2-11) % Metamyelocytes % 2.0 H (-0) % Neutrophils # (Manual) 4071 (3033-8662) /uL Nucleated RBCs 4 H ( - 0) #/Diff RBC Morphology See below Polychromasia 1+ H Anisocytosis 1+ H Sodium 130 L (137-145) mmol/L Potassium 4.7 (3.4-5.1) mmol/L Chloride 95 L (98-107) mmol/L Carbon Dioxide 16 L (22-32) mmol/L BUN 25 H (9-20) mg/dL Creatinine 0.90 (0.66-1.25) mg/dL Estimated GFR > 60 (>60) mL/min BUN/Creatinine Ratio 27.8 H (6-22) Glucose 213 H (70-100) mg/dL Calcium 8.8 (8.4-10.2) mg/dL Total Bilirubin 0.7 (0.2-1.3) mg/dL AST 51 (17-59) IU/L ALT 57 H (<50) IU/L Alkaline Phosphatase 64 (38-126) U/L Total Protein 7.3 (6.3-8.2) g/dL Albumin 4.6 (3.5-5.0) g/dL Globulin 2.7 (1.7-4.1) g/dL Albumin/Globulin Ratio 1.7 (1.0-2.8) Lipase 114 (23-300) U/L Ethyl Alcohol < 10 ( - 10) mg/dL Imaging Data CT scan - head: Radiologist's Impression: [place] [address] CT Scan Report Signed Patient: Juan Luis Barry MR#: [id number] : 1970 Acct:[id number] Age/Sex: 50 / M Date of Service: 10/04/21 Loc: ED Accession Number: [id number] ?? Procedure: CT head/brain wo con Ordering Provider: Danial Stokes D.O. PROCEDURE:? CT HEAD/BRAIN WO CON ? INDICATIONS:? Hx of brain CA with increase in seizure activity today ? TECHNIQUE:? Noncontrast 4.5 mm thick angled axial sections acquired from the foramen magnum to the vertex, with coronal and sagittal reformats.? For radiation dose reduction, the following was used:? automated exposure control, adjustment of mA and/or kV according to patient size.? ? COMPARISON:? [facility], CT, CT HEAD WITHOUT CONTRAST, 02/17/2021, 14:18.? Outside Film, MR, MR BRAIN WITH/WITHOUT CONTRAST, 09/07/2021, 9:19.? [facility], MR, MR BRAIN WITH/WITHOUT CONTRAST, 07/11/2021, 11:53. ? FINDINGS:? Image quality:? Significant artifact is noted overlying significant portions of the brain secondary to radiation trocar placement. ? Significant artifact is present obscuring the majority of the intracranial contents for evaluation.? Partially visualized cystic focus is noted in the left posterior parietal occipital lobe as previously identified.? Other limited visualized portions of the brain demonstrate no acute hemorrhage.? Fluid levels present in the right maxillary sinus with minimal mucosal thickening in the left sphenoid sinus. ? IMPRESSION:? ? Markedly limited limited evaluation secondary to artifact as above.? Visualized portions of the brain demonstrate no acute change.? Partially visualized cystic focus is noted in the posterior left parietal occipital lobe as previously present. ? ? Dictated by: Evon Pierson M.D. on 10/04/2021 at 18:58 ? ? Approved by: Evon Pierson M.D. on 10/04/2021 at 19:[address]: Radiologist's Impression: [place] [address] CT Scan Report Signed Patient: Juan Luis Barry MR#: [id number] : 1970 Acct:[id number] Age/Sex: 50 / M Date of Service: 10/04/21 Loc: ED Accession Number: [id number] ?? Procedure: CT head/brain wo con Ordering Provider: Danial Stokes D.O. PROCEDURE:? CT HEAD/BRAIN WO CON ? INDICATIONS:? hx of brain CA, increase in seizures ? TECHNIQUE:? Noncontrast 4.5 mm thick angled axial sections acquired from the foramen magnum to the vertex, with coronal and sagittal reformats.? For radiation dose reduction, the following was used:? automated exposure control, adjustment of mA and/or kV according to patient size.? ? COMPARISON:? [facility], MR, MR BRAIN WITH/WITHOUT CONTRAST, 07/11/2021, 11:53.? [facility], CT, CT HEAD WITHOUT CONTRAST, 02/17/2021, 14:18.? [facility], CT, CT CONTE, 06/08/2021, 11:10.? Outside Film, MR, MR BRAIN WITH/WITHOUT CONTRAST, 09/07/2021, 9:19.? [facility], CT, CT HEAD/BRAIN WO CON, , 18:25. ? FINDINGS:? Image quality:? Excellent.? ? CSF spaces:? Basal cisterns are patent.? No extra-axial fluid collections.? Ventricles are normal in size and shape.? ? Brain:? No midline shift.? No hemorrhage.? Low-attenuation masses noted in the left parietal occipital lobe, as present on prior exam.? Within the right parietal occipital lobe, there is a hyperdense mass measuring 1.3 x 0.8 cm.? This has been present prior exams although appears slightly more prominent compared to prior CT of 06/08/2021.? Abnormal signal consistent with mass in this region is present on recent MRI.? Diggs-white matter interface is normal.? ? Skull and face:? Calvarium demonstrates postsurgical changes. ? Sinuses:? Visualized sinuses demonstrated left maxillary sinus fluid level. ? IMPRESSION:? ? Low-attenuation mass within the left parietal occipital lobe appearing unchanged. ? Hyperdense mass suspicious for calcifications are present in the right parietal occipital lobe more prominent when directly compared to prior CT on 06/08/2021.? However, abnormal signal is present within this region on recent MRI exams.? While overall appearance is most suggestive of calcifications, small underlying areas of hyperdensity consistent with tumoral hemorrhage cannot be definitively excluded.? There is no mass effect.? ? ? Dictated by: Evon Pierson M.D. on 10/04/2021 at 19:48 ? ? Approved by: Evon Pierson M.D. on 10/04/2021 at 19:53?? MDM Narrative Medical decision making narrative: Upon arrival patient did have electrodes on his scalp. We were unsure exactly what these were. EMS thought that maybe it was a stimulator because of his seizures. His initial head CT was ordered with these in place because I was uncomfortable with removing them. Was severely degraded because of it. When his arrived she states that these electrodes were for the treatment of the cancer not because of the seizures. She took the electrodes off and the head CT was repeated and it shows no new changes. Patient has had no seizure activity since being here in the ER. He did recover from his postictal state but was still somewhat confused which according to his his somewhat baseline for him. I contacted the [facility] and was informed through there triage nurse after she had talked with the patient's neurologist that he should go back up on his Keppra to the 3 g a day as the patient did not seem to have a ny seizure activity at this level. He was given 1 g of Keppra here in the ER. Patient's was comfortable taking him home. They will contact neurologist for follow-up. Discharge Plan Departure Patient Disposition: Home Clinical Impression: Generalized seizure Instructions: DI for Seizure Disorder -- Adult Activity Restrictions/Additional Instructions: According to the neurologist at the [facility] he would like Juan Luis to go back up to 3000 mg of Keppra on a daily basis. This was the dose that Juan Luis was on prior to the decrease that started today. Keep all of Juan Luis ann-marie eduled medical appointments. Return to the emergency department for any new or worsening symptoms. Prescriptions: No Action allopurinol 300 mg tablet See Rx Instructions .ROUTE .COMPLEX Qty: 90 3RF Dose Instruction: TAKE 1 TABLET BY MOUTH DAILY Rx Instructions: TAKE 1 TABLET BY MOUTH DAILY fluoxetine 10 mg capsule See Rx Instructions .ROUTE .COMPLEX Qty: 90 3RF Dose Instruction: TAKE 1 CAPSULE BY MOUTH DAILY Rx Instructions: TAKE 1 CAPSULE BY MOUTH DAILY naproxen 500 mg tablet See Rx Instructions .ROUTE .COMPLEX Qty: 60 0RF Dose Instruction: TAKE 1 TABLET BY MOUTH TWICE DAILY NEEDED FOR PAIN Rx Instructions: TAKE 1 TABLET BY MOUTH TWICE DAILY NEEDED FOR PAIN prednisone 20 mg tablet 40 mg PO DAILY Qty: 14 0RF levetiracetam [Keppra] 750 mg tablet 750 mg PO BID 0RF acetaminophen 500 mg tablet 500 mg PO 0RF melatonin 3 mg tablet 3 mg PO 0RF Referrals: Rex Hyman, [Primary Care Provider] -
[2021-10-04] MEDS: levETIRAcetam 1,000 MG in SODIUM CHLORIDE 0.9% 100 ML 440 MG IV (18:45)
[2021-10-04 18:50] LABS: Hematocrit 34.9 % (41-53); Hemoglobin 12.2 g/dL (13.5-17.5); Mean Corpuscular Hemoglobin 34.9 PG (26-34); Mean Corpuscular Volume 99.7 fL (80-100); Platelet Count 224 X10^3/uL (150-400); Red Cell Distribution Width 19.8 % (11.6-14.8); White Blood Cell Count 5.9 X10^3/uL (4.5-11.0)
[2021-10-04 18:55] LABS: Add Manual Diff / Slide Review YES
[2021-10-04 19:02] LABS: Albumin 4.6 g/dL (3.5-5.0); Albumin Globulin Ratio 1.7 (1.0-2.8); Alkaline Phosphatase 64 U/L (38-126); Aspartate Aminotransferase 51 IU/L (17-59); BUN Creatinine Ratio 27.8 (6-22); Bilirubin Total 0.7 mg/dL (0.2-1.3); Blood Urea Nitrogen 25 mg/dL (9-20); Calcium 8.8 mg/dL (8.4-10.2); Carbon Dioxide 16 mmol/L (22-32); Chloride 95 mmol/L (98-107); Estimated Glomerular Filt Rate > 60 mL/min (>60); Ethanol (ETOH) < 10 mg/dL; Globulin 2.7 g/dL (1.7-4.1); Glucose 213 mg/dL (70-100); HEMOLYSIS 17 (0-50); Lipase 114 U/L (23-300); Potassium 4.7 mmol/L (3.4-5.1); Sodium 130 mmol/L (137-145); Total Protein 7.3 g/dL (6.3-8.2)
--- NOTE | 2021-10-04 19:02 | DI.CT.S_ITS ---
PROCEDURE: CT HEAD/BRAIN WO CON INDICATIONS: hx of brain CA, increase in seizures TECHNIQUE: Noncontrast 4.5 mm thick angled axial sections acquired from the foramen magnum to the vertex, with coronal and sagittal reformats. For radiation dose reduction, the following was used: automated exposure control, adjustment of mA and/or kV according to patient size. COMPARISON: [facility], MR, MR BRAIN WITH/WITHOUT CONTRAST, 07/11/2021, 11:53. [facility], CT, CT HEAD WITHOUT CONTRAST, 02/17/2021, 14:18. [facility], CT, CT CONTE, 06/08/2021, 11:10. Outside Film, MR, MR BRAIN WITH/WITHOUT CONTRAST, 09/07/2021, 9:19. [facility], CT, CT HEAD/BRAIN WO CON, 10/04/2021, 18:25. FINDINGS: Image quality: Excellent. CSF spaces: Basal cisterns are patent. No extra-axial fluid collections. Ventricles are normal in size and shape. Brain: No midline shift. No hemorrhage. Low-attenuation masses noted in the left parietal occipital lobe, as present on prior exam. Within the right parietal occipital lobe, there is a hyperdense mass measuring 1.3 x 0.8 cm. This has been present prior exams although appears slightly more prominent compared to prior CT of 06/08/2021. Abnormal signal consistent with mass in this region is present on recent MRI. Diggs-white matter interface is normal. Skull and face: Calvarium demonstrates postsurgical changes. Sinuses: Visualized sinuses demonstrated left maxillary sinus fluid level. IMPRESSION: Low-attenuation mass within the left parietal occipital lobe appearing unchanged. Hyperdense mass suspicious for calcifications are present in the right parietal occipital lobe more prominent when directly compared to prior CT on 06/08/2021. However, abnormal signal is present within this region on recent MRI exams. While overall appearance is most suggestive of calcifications, small underlying areas of hyperdensity consistent with tumoral hemorrhage cannot be definitively excluded. There is no mass effect. Dictated by: Evon Pierson M.D. on 10/04/2021 at 19:48 Approved by: Evon Pierson M.D. on 10/04/2021 at 19:53
[2021-10-04 19:09] LABS: Alanine Aminotransferase 57 IU/L (<50)
[2021-10-04 19:20] LABS: Anisocytosis 1+; Neutrophils Absolute Manual 4071 /uL (3000-5900); Nucleated Red Blood Cells 4 #/Diff; Polychromasia 1+; Total Cells Counted 100
[2021-10-04 22:13] VITALS: PULSE 88
[2021-10-10 12:11] LABS: Levetiracetam Keppra 31.6 ug/mL (10.0-40.0)
== END 2021-10-04 22:13 | disposition home or self-care (01) ==
PROVIDERS: Emergency Provider Emergency Medicine; PCP Family Medicine
DX: R56.9 Unspecified convulsions (principal); Z85.841 Personal history of malignant neoplasm of brain
CPT/HCPCS: 36415; 70450; 80053; 80177; 80320; 83690; 85007; 85025; 96365; 99283; 99284; J1953

== ENCOUNTER 2021-12-03 09:40 | Emergency (ER) | payer BC, SELFPAY ==
[2021-12-03] VITALS (9 sets, daily range): BP systolic 143–151; BP diastolic 85–103; PULSE 88–100; RESP 17–22; TEMP 36.6–36.9; O2SAT 92–100; BMI 26.5
--- NOTE | 2021-12-03 09:58 | DI.RAD.S_ITS ---
PROCEDURE: XR CHEST 1V INDICATIONS: weakness/chest pain TECHNIQUE: One view of the chest was acquired. COMPARISON: [facility], CT, CT HEAD/BRAIN WO CON, 12/03/2021, 10:05. Outside Film, CT, CT CHEST ABDOMEN PELVIS WITH CONTRAST, 04/30/2020, 21:27. FINDINGS: Surgical changes and devices: None. Lungs and pleura: On this supine examination, no large pneumothorax or large pleural effusions are seen. No focal areas of lung consolidation are seen. Low lung volumes are noted. This causes a crowded appearance to the lung markings and limits evaluation. Mediastinum: Prominence of the superior mediastinum can be seen. The cardiac contours are likely within normal limits. Bones and chest wall: No suspicious bony lesions. Overlying soft tissues appear unremarkable. IMPRESSION: Prominence of superior mediastinum can be seen. Low lung volumes, without focal infiltrates. Dictated by: Cleveland Barrett M.D. on 12/03/2021 at 10:02 Approved by: Cleveland Barrett M.D. on 12/03/2021 at 10:03
--- NOTE | 2021-12-03 09:58 | DI.CT.S_ITS ---
PROCEDURE: CT HEAD/BRAIN WO CON INDICATIONS: GBM increased weakness TECHNIQUE: Noncontrast 4.5 mm thick angled axial sections acquired from the foramen magnum to the vertex, with coronal and sagittal reformats. For radiation dose reduction, the following was used: automated exposure control, adjustment of mA and/or kV according to patient size. COMPARISON: [facility], CR, XR CHEST 1V, 12/03/2021, 10:47. Outside Film, MR, MR BRAIN WITH/WITHOUT CONTRAST, 09/07/2021, 9:19. [facility], CT, CT HEAD/BRAIN WO CON, 10/04/2021, 18:25. [facility], CT, CT HEAD/BRAIN WO CON, 10/04/2021, 19:11. FINDINGS: Image quality: This examination is limited by involuntary motion artifact. CSF spaces: Basal cisterns are patent. No extra-axial fluid collections. There is narrowing of the right lateral ventricle, which is worse than on the prior examination. Brain: Prior resection change can be seen involving the posterior aspect of the left cerebral hemisphere medially. Mild low density can be seen adjacent to the term origin, which can be seen on prior MRI to represent local recurrence. Within the posterior aspect of the right cerebral hemisphere, there is low attenuation seen with calcification. The extent of the low-attenuation is larger than on the 10/04/2021 examination, particularly involving the right temporal lobe. Associated mass effect is seen, with narrowing of the right lateral ventricle and midline shift 4-5 mm No intracranial masses or hemorrhage. Diggs-white matter interface is normal. Skull and face: Calvarium and visualized facial bones are intact, without suspicious lesions. Sinuses: Visualized sinuses and mastoids are clear. 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 Associated mass effect can be seen, with narrowing of the right lateral ventricle and 4-5 mm of midline shift. Prior resection change can be seen involving the LEFT cerebral hemisphere medially. Local recurrence can be seen, which is likely stable. Dictated by: Cleveland Barrett M.D. on 12/03/2021 at 9:56 Approved by: Cleveland Barrett M.D. on 12/03/2021 at 10:02
--- NOTE | 2021-12-03 09:58 | ED.WEAKNESS ---
HPI - Weakness General Chief complaint: Altered Mental Status Stated complaint: weakness, stage 4 cancer, not eating, drinking Time Seen by Provider: 12/03/21 09:56 History of Present Illness HPI Narrative: Patient is a 50-year-old male with known Glioblastoma currently being treated with oral chemotherapy initially was diagnosed in 2019 presents today with increasing weakness. states that 5 days ago he had some nausea vomiting diarrhea. She says that has stopped however he continues to be extremely weak. He is normally able walk with a walker he is not able to do so. Today she could even sit him up to eat. He denies any pain for me here however states that he was having some chest pain. He has not had any fever or chills. She says the last few days he has rapidly declined. He required 4 people to get him out of the vehicle and onto a gurney. He is followed by [facility] for his chemotherapy and [facility] neurology. Patient is overall a very poor historian most history is from . He is able to follow some simple commands Related Data Home Medications Medication Instructions Recorded Confirmed melatonin 3 mg tablet 3 mg PO BEDTIME PRN Sleep 05/11/20 12/03/21 levetiracetam 750 mg tablet 750 mg PO BID 09/29/20 12/03/21 (Keppra) amlodipine 5 mg tablet 5 mg PO DAILY 12/03/21 12/03/21 dexamethasone 2 mg tablet 2 mg PO DAILY 12/03/21 12/03/21 gabapentin 300 mg capsule 300 mg PO BEDTIME PRN Insomnia 12/03/21 12/03/21 lisinopril 20 mg tablet 20 mg PO DAILY 12/03/21 12/03/21 naproxen 500 mg tablet See Rx Instructions .Route 12/03/21 12/03/21 .COMPLEX PRN Pain (Scale Score 4-6) trazodone 50 mg tablet 50 mg PO BEDTIME PRN Insomnia 12/03/21 12/03/21 Previous Rx's Medication Instructions Recorded allopurinol 300 mg tablet See Rx Instructions .Route 09/19/21 .COMPLEX #90 tabs fluoxetine 10 mg capsule See Rx Instructions .Route 09/19/21 .COMPLEX #90 caps Allergies Allergy/AdvReac Type Severity Reaction Status Date / Time bee venom protein (honey bee) Allergy Severe anaphylaxis Verified 12/03/21 09:59 Review of Systems Review of Systems ROS Unobtainable: Unobtainable due to medical condition Patient History Medical History Depression Elevated liver function tests Glioblastoma multiforme of occipital lobe Gout (~2009) Hypertension (~2014) Hyponatremia Surgical History Anesthesia History of brain surgery (~05/03/20) Family History Father History of heart disease Hypertension Brother History of heart disease History of splenectomy Brother Mental health problem Brother Kidney failure Kidney transplanted History of renal dialysis Grandfather Alzheimer's disease Grandmother Accident Grandfather History of heart attack Grandmother History of heart attack Social History Smoking Status: Former smoker Tobacco: How many years used: 5 Smokeless tobacco user: chewing tobacco and other quit status: considering quitting alcohol intake: former substance use type: does not use Smoking Status: Former smoker tobacco type: smokeless tobacco alcohol intake frequency: holidays/special occasions only Alcohol type: hard liquor Substance Use Type: does not use Exam Initial Vital Signs Initial Vital Signs: Vital Signs Pulse Rate 100 H 12/03/21 09:52 Respiratory Rate 12/03/21 09:52 Pulse Oximetry 96 12/03/21 09:52 GENERAL: Chronically ill with 50-year-old male HEENT: Head atraumatic,EOMI, pupils reactive, face symmetric, moist mucous membranes CARDIOVASCULAR: Regular rate and rhythm without murmurs, rubs or gallops. RESPIRATORY: Breath sounds equal bilaterally, no wheezes rales or rhonchi. ABDOMEN: Soft, nontender. Normoactive bowel sounds all 4 quadrants. No guarding or rebound. EXTREMITIES: Normal range of motion, no clubbing or edema. Neurovascularly intact NEUROLOGICAL: Alert patroller strength equal bilaterally bilateral lower extremity weakness although able to draft roller picker right leg crossed over to left. Face is symmetric SKIN: Warm, dry, no laceration, no petechiae, no rashes or lesions. Course Orders Ordered: ED Orders 12/03/21 10:05 UA Complete [Urinalysis and Microscopic] Stat 12/03/21 10:26 Blood Culture Stat Discontinued Medications Dexamethasone (Dexamethasone 10 Mg/Ml Vial) 10 mg IV NOW ONE Stop: 12/03/21 11:20 Last Admin: 12/03/21 11:31 Dose: 10 mg Documented By: LAUREN Levetiracetam 750 mg/ Sodium (Chloride) 107.5 mls @ 430 mls/hr IV NOW ONE Stop: 12/03/21 12:29 Last Infusion: 12/03/21 13:02 Dose: 0 mls/hr Documented By: Admin: 12/03/21 12:37 Dose: 430 mls/hr Documented By: LAUREN Sodium Chloride (Normal Saline 0.9%) 1,000 mls @ 150 mls/hr IV CONT JIN Last Infusion: 12/03/21 16:44 Dose: 0 mls/hr Documented By: Admin: 12/03/21 14:13 Dose: 150 mls/hr Documented By: LAUREN Vital Signs Vital signs: Vital Signs - 8 hr 12/03/21 11:33 12/03/21 14:07 12/03/21 12:48 Temperature 97.9 F Pulse Rate 93 H Respiratory Rate Blood Pressure 146/85 H 143/103 H Pulse Oximetry 99 Oxygen Delivery Method 12/03/21 12:48 12/03/21 14:03 12/03/21 14:07 Temperature Pulse Rate 88 96 H 90 Respiratory Rate Blood Pressure Pulse Oximetry 94 100 92 Oxygen Delivery Method 12/03/21 14:07 12/03/21 17:02 Temperature Pulse Rate 90 Respiratory Rate 20 Blood Pressure 146/85 H 148/90 H Pulse Oximetry 96 Oxygen Delivery Method Room Air MDM - Weakness Lab Data Result diagrams: 12/03/21 09:55 12/03/21 09:55 Labs: Lab Results 12/03/21 12/03/21 12/03/21 Range/Units 09:55 09:55 09:55 WBC 6.4 (4.5-11.0) X10^3/uL RBC 4.30 L (4.5-5.9) X10^6/uL Hgb 13.8 (13.5-17.5) g/dL Hct 39.8 L (41-53) % MCV 92.5 (80-100) fL MCH 32.2 (26-34) PG MCHC 34.8 (30-36) % RDW 19.4 H (11.6-14.8) % Plt Count 122 L (150-400) X10^3/uL Neut % (Auto) 74.9 (50-75) % Lymph % (Auto) 17.0 L (25-40) % [place] % (Auto) 7.6 (3-14) % Eos % (Auto) 0.1 L (2-4) % Baso % (Auto) 0.4 (0-2) % Neut # (Auto) 4800 (7585-1517) /uL Lymph # (Auto) 1100 (2312-2814) /uL [place] # (Auto) 500 (0-900) /uL Eos # (Auto) 0 (0-450) /uL Baso # (Auto) 0 (0-100) /uL PT 11.5 (10.1-12.7) SECONDS INR 1.0 (0.9-1.3) APTT 30 (26.4-36.2) SECONDS Sodium 129 L (137-145) mmol/L Potassium 4.1 (3.4-5.1) mmol/L Chloride 93 L (98-107) mmol/L Carbon Dioxide 28 (22-32) mmol/L BUN 17 (9-20) mg/dL Creatinine 0.64 L (0.66-1.25) mg/dL Estimated GFR > 60 (>60) mL/min BUN/Creatinine Ratio 26.6 H (6-22) Glucose 119 H (70-100) mg/dL Lactate (0.7-2.1) mmol/L Calcium 8.9 (8.4-10.2) mg/dL Total Bilirubin 1.0 (0.2-1.3) mg/dL AST 44 (17-59) IU/L ALT 101 H (<50) IU/L Alkaline Phosphatase 73 (38-126) U/L Total Creatine Kinase < 20 L (55-170) U/L CK-MB (CK-2) TNP CK-MB (CK-2) Rel Index TNP Troponin I < 0.012 (0.01-0.034) ng/mL Total Protein 7.2 (6.3-8.2) g/dL Albumin 4.5 (3.5-5.0) g/dL Globulin 2.7 (1.7-4.1) g/dL Albumin/Globulin Ratio 1.7 (1.0-2.8) Lipase 91 (23-300) U/L Procalcitonin (<0.5) ng/mL Urine Color Urine Appearance Urine pH (4.5-8.0) Ur Specific Treichlers (1.000-1.035) Urine Protein (Negative) Urine Glucose (UA) (Negative) g/dL Urine Ketones (NEGATIVE) Urine Occult Blood (Negative) Urine Nitrate (Negative) Urine Bilirubin (NEGATIVE) Urine Urobilinogen (0.2) E.U./dL Ur Leukocyte Esterase (NEGATIVE) Urine RBC (0-5/HPF) Urine WBC (0-5/HPF) Ur Squamous Epith Cells (0-5/HPF) Amorphous Sediment Urine Bacteria (None) Ur Culture Indicated? SARS-CoV-2 (PCR) (Negative) 12/03/21 12/03/21 12/03/21 Range/Units 09:55 09:55 10:00 WBC (4.5-11.0) X10^3/uL RBC (4.5-5.9) X10^6/uL Hgb (13.5-17.5) g/dL Hct (41-53) % MCV (80-100) fL MCH (26-34) PG MCHC (30-36) % RDW (11.6-14.8) % Plt Count (150-400) X10^3/uL Neut % (Auto) (50-75) % Lymph % (Auto) (25-40) % [place] % (Auto) (3-14) % Eos % (Auto) (2-4) % Baso % (Auto) (0-2) % Neut # (Auto) (7202-0029) /uL Lymph # (Auto) (7669-8601) /uL [place] # (Auto) (0-900) /uL Eos # (Auto) (0-450) /uL Baso # (Auto) (0-100) /uL PT (10.1-12.7) SECONDS INR (0.9-1.3) APTT (26.4-36.2) SECONDS Sodium (137-145) mmol/L Potassium (3.4-5.1) mmol/L Chloride (98-107) mmol/L Carbon Dioxide (22-32) mmol/L BUN (9-20) mg/dL Creatinine (0.66-1.25) mg/dL Estimated GFR (>60) mL/min BUN/Creatinine Ratio (6-22) Glucose (70-100) mg/dL Lactate 1.6 (0.7-2.1) mmol/L Calcium (8.4-10.2) mg/dL Total Bilirubin (0.2-1.3) mg/dL AST (17-59) IU/L ALT (<50) IU/L Alkaline Phosphatase (38-126) U/L Total Creatine Kinase (55-170) U/L CK-MB (CK-2) CK-MB (CK-2) Rel Index Troponin I (0.01-0.034) ng/mL Total Protein (6.3-8.2) g/dL Albumin (3.5-5.0) g/dL Globulin (1.7-4.1) g/dL Albumin/Globulin Ratio (1.0-2.8) Lipase (23-300) U/L Procalcitonin 0.11 (<0.5) ng/mL Urine Color Urine Appearance Urine pH (4.5-8.0) Ur Specific [place] (1.000-1.035) Urine Protein (Negative) Urine Glucose (UA) (Negative) g/dL Urine Ketones (NEGATIVE) Urine Occult Blood (Negative) Urine Nitrate (Negative) Urine Bilirubin (NEGATIVE) Urine Urobilinogen (0.2) E.U./dL Ur Leukocyte Esterase (NEGATIVE) Urine RBC (0-5/HPF) Urine WBC (0-5/HPF) Ur Squamous Epith Cells (0-5/HPF) Amorphous Sediment Urine Bacteria (None) Ur Culture Indicated? SARS-CoV-2 (PCR) Negative (Negative) 12/03/21 Range/Units 10:05 WBC (4.5-11.0) X10^3/uL RBC (4.5-5.9) X10^6/uL Hgb (13.5-17.5) g/dL Hct (41-53) % MCV (80-100) fL MCH (26-34) PG MCHC (30-36) % RDW (11.6-14.8) % Plt Count (150-400) X10^3/uL Neut % (Auto) (50-75) % Lymph % (Auto) (25-40) % [place] % (Auto) (3-14) % Eos % (Auto) (2-4) % Baso % (Auto) (0-2) % Neut # (Auto) (1844-6700) /uL Lymph # (Auto) (3750-1252) /uL [place] # (Auto) (0-900) /uL Eos # (Auto) (0-450) /uL Baso # (Auto) (0-100) /uL PT (10.1-12.7) SECONDS INR (0.9-1.3) APTT (26.4-36.2) SECONDS Sodium (137-145) mmol/L Potassium (3.4-5.1) mmol/L Chloride (98-107) mmol/L Carbon Dioxide (22-32) mmol/L BUN (9-20) mg/dL Creatinine (0.66-1.25) mg/dL Estimated GFR (>60) mL/min BUN/Creatinine Ratio (6-22) Glucose (70-100) mg/dL Lactate (0.7-2.1) mmol/L Calcium (8.4-10.2) mg/dL Total Bilirubin (0.2-1.3) mg/dL AST (17-59) IU/L ALT (<50) IU/L Alkaline Phosphatase (38-126) U/L Total Creatine Kinase (55-170) U/L CK-MB (CK-2) CK-MB (CK-2) Rel Index Troponin I (0.01-0.034) ng/mL Total Protein (6.3-8.2) g/dL Albumin (3.5-5.0) g/dL Globulin (1.7-4.1) g/dL Albumin/Globulin Ratio (1.0-2.8) Lipase (23-300) U/L Procalcitonin (<0.5) ng/mL Urine Color Yellow Urine Appearance Clear Urine pH 7.5 (4.5-8.0) Ur Specific [place] 1.010 (1.000-1.035) Urine Protein Trace H (Negative) Urine Glucose (UA) Trace H (Negative) g/dL Urine Ketones Trace H (NEGATIVE) Urine Occult Blood Negative (Negative) Urine Nitrate Negative (Negative) Urine Bilirubin Negative (NEGATIVE) Urine Urobilinogen 0.2 (0.2) E.U./dL Ur Leukocyte Esterase Negative (NEGATIVE) Urine RBC None seen (0-5/HPF) Urine WBC None seen (0-5/HPF) Ur Squamous Epith Cells 0-1 /hpf (0-5/HPF) Amorphous Sediment 1+ Urine Bacteria None seen (None) Ur Culture Indicated? Cult not indicated SARS-CoV-2 (PCR) (Negative) Imaging Data CT scan - head: Radiologist Impression: nt: Juan Luis Barry MR#: [id number] : 1970 Acct:[id number] Age/Sex: 50 / M Date of Service: 12/03/21 Loc: ED Accession Number: [id number] ?? Procedure: CT head/brain wo con Ordering Provider: Bing Ortiz D.O. PROCEDURE:? CT HEAD/BRAIN WO CON ? INDICATIONS:? GBM increased weakness ? TECHNIQUE:? Noncontrast 4.5 mm thick angled axial sections acquired from the foramen magnum to the vertex, with coronal and sagittal reformats.? For radiation dose reduction, the following was used:? automated exposure control, adjustment of mA and/or kV according to patient size.? ? COMPARISON:? [facility], CR, XR CHEST 1V, 12/03/2021, 10:47.? Outside Film, MR, MR BRAIN WITH/WITHOUT CONTRAST, 09/07/2021, 9:19.? [facility], CT, CT HEAD/BRAIN WO CON, 10/04/2021, 18:25.? [facility], CT, CT HEAD/BRAIN WO CON, 10/04/2021, 19:11. ? FINDINGS:? Image quality:? This examination is limited by involuntary motion artifact.? ? CSF spaces:? Basal cisterns are patent.? No extra-axial fluid collections.? There is narrowing of the right lateral ventricle, which is worse than on the prior examination. ? Brain:? Prior resection change can be seen involving the posterior aspect of the left cerebral hemisphere medially.? Mild low density can be seen adjacent to the term origin, which can be seen on prior MRI to represent local recurrence. ? Within the posterior aspect of the right cerebral hemisphere, there is low attenuation seen with calcification.? The extent of the low-attenuation is larger than on the 10/04/2021 examination, particularly involving the right temporal lobe. ? Associated mass effect is seen, with narrowing of the right lateral ventricle and midline shift 4-5 mm ? No intracranial masses or hemorrhage.? Diggs-white matter interface is normal.? ? Skull and face:? Calvarium and visualized facial bones are intact, without suspicious lesions.? ? Sinuses:? Visualized sinuses and mastoids are clear.? IMPRESSION:? Progression of underlying neoplasm/edema involving the RIGHT cerebral hemisphere, particularly involving the right temporal lobe.? Associated mass effect can be seen, with narrowing of the right lateral ventricle and 4-5 mm of midline shift. ? Prior resection change can be seen involving the LEFT cerebral hemisphere medially.? Local recurrence can be seen, which is likely stable.? ? Dictated by: Cleveland Barrett M.D. on 12/03/2021 at 9:56 ? ? [facility] Narrative Medical decision making narrative: The patient is found to be profoundly weak he does have some midline shift of 4-5 mm in worsening edema. Difficult to tell if this is old or new he has had previous MRIs they have all been down at [facility]. He has no old to be a mildly hyponatremic of 1 soon 9 however is previous sodium in September was 130 this seems to be baseline for him. He has not yet taken his dexamethasone or his Keppra medications of both of those are given IV. Waited quite long time to hear back from Neurosurgery. 1600 Dr. Ribeiro, neurosurgery at [facility] not has reviewed imaging today and looked at prior imaging. States that there is a little bit more edema and shift. States patient has quite advanced disease and certainly not a surgical candidate. Could be transferred for supportive care in correction of sodium versus home with hospice. Patient has been evaluated by social Work is has been provided hospice information. Family has been provided both options and choices. They recognize he is at the end of his disease and would like to go home with hospice. Discharge Plan Departure Patient Disposition: Home Clinical Impression: Glioblastoma multiforme of occipital lobe Instructions: Glioblastoma Multiforme Activity Restrictions/Additional Instructions: *You have been diagnosed with glioblastoma *What to do: Supportive care only. I did talk with [facility] they will move up your appointment however I recommend calling them tomorrow to be sure Please call hospice tomorrow as well social work has started the process. Social work number [phone] *Continue to take medications as directed *Follow up with your primary care provider in 2-3 days or call [phone] *Return to ER if you should have persistent vomiting decreasing mental status, or any new, worsening or concerning symptoms Prescriptions: No Action allopurinol 300 mg tablet See Rx Instructions .ROUTE .COMPLEX Qty: 90 3RF Dose Instruction: TAKE 1 TABLET BY MOUTH DAILY Rx Instructions: TAKE 1 TABLET BY MOUTH DAILY fluoxetine 10 mg capsule See Rx Instructions .ROUTE .COMPLEX Qty: 90 3RF Dose Instruction: TAKE 1 CAPSULE BY MOUTH DAILY Rx Instructions: TAKE 1 CAPSULE BY MOUTH DAILY levetiracetam [Keppra] 750 mg tablet 750 mg PO BID melatonin 3 mg tablet 3 mg PO BEDTIME PRN (Reason: Sleep) trazodone 50 mg Tablet 50 mg PO BEDTIME PRN (Reason: Insomnia) lisinopril 20 mg Tablet 20 mg PO DAILY amlodipine 5 mg Tablet 5 mg PO DAILY Rx Instructions: amlodipine besylate dexamethasone 2 mg Tablet 2 mg PO DAILY Rx Instructions: Take 2 tablets by mouth daily with breakfast. may also take 1 tablet daily as needed for headaches in the evening as needed. gabapentin 300 mg Capsule 300 mg PO BEDTIME PRN (Reason: Insomnia) naproxen 500 mg tablet See Rx Instructions .ROUTE .COMPLEX PRN (Reason: Pain (Scale Score 4-6)) Rx Instructions: TAKE 1 TABLET BY MOUTH TWICE DAILY NEEDED FOR PAIN Referrals: Rex Hyman DO [Primary Care Provider] - Visit Report Forms: Patient Portal/API
--- NOTE | 2021-12-03 09:59 | PC.NURSE ---
Per family member pt's history: At baseline pt is usually able to walk with assistance. He can communicate with fairly clear speech but had had a gradual decline in cognition since first discovery of brain tumor. The original brain tumor was surgically removed but had to go onto six weeks of full brain radiation last summer. Later he had to go onto oral chemo for a new growth . in July of this year he was given three weeks of radiation and has had a new frontal lobe growth discovered October of this year.
[2021-12-03 10:14] LABS: Add Manual Diff / Slide Review NO; Basophils Absolute Auto 0 /uL (0-100); Basophils Percent Auto 0.4 % (0-2); Eosinophils Absolute Auto 0 /uL (0-450); Eosinophils Percent Auto 0.1 % (2-4); Hematocrit 39.8 % (41-53); Hemoglobin 13.8 g/dL (13.5-17.5); Lymphocytes Absolute Auto 1100 /uL (1100-4500); Mean Corpuscular HGB Conc 34.8 % (30-36); Mean Corpuscular Hemoglobin 32.2 PG (26-34); Mean Corpuscular Volume 92.5 fL (80-100); Monocytes Absolute Auto 500 /uL (0-900); Monocytes Percent Auto 7.6 % (3-14); Neutrophils Absolute Auto 4800 /uL (1500-7000); Neutrophils Percent Auto 74.9 % (50-75); Platelet Count 122 X10^3/uL (150-400); Red Cell Distribution Width 19.4 % (11.6-14.8); White Blood Cell Count 6.4 X10^3/uL (4.5-11.0)
[2021-12-03 10:16] LABS: Prothrombin Time 11.5 SECONDS (10.1-12.7)
[2021-12-03 10:18] LABS: PTT Partial Thromboplastin Tim 30 SECONDS (26.4-36.2)
[2021-12-03 10:18] LABS: Appearance Urine UA CLEAR; Bilirubin Urine UA NEGATIVE (NEGATIVE); Color Urine UA YELLOW; Glucose Urine UA TRACE g/dL (Negative); Ketones Urine UA TRACE (NEGATIVE); Leukocyte Esterase Urine UA NEGATIVE (NEGATIVE); Nitrite Urine UA NEGATIVE (Negative); Occult Blood Urine UA NEGATIVE (Negative); Protein Urine UA TRACE (Negative); Urobilinogen Urine UA 0.2 E.U./dL (0.2); pH Urine UA 7.5 (4.5-8.0)
[2021-12-03 10:21] LABS: Lactate (Lactic Acid) 1.6 mmol/L (0.7-2.1)
[2021-12-03 10:22] LABS: Alanine Aminotransferase 101 IU/L (<50); Albumin 4.5 g/dL (3.5-5.0); Albumin Globulin Ratio 1.7 (1.0-2.8); Alkaline Phosphatase 73 U/L (38-126); Aspartate Aminotransferase 44 IU/L (17-59); BUN Creatinine Ratio 26.6 (6-22); Blood Urea Nitrogen 17 mg/dL (9-20); Calcium 8.9 mg/dL (8.4-10.2); Carbon Dioxide 28 mmol/L (22-32); Chloride 93 mmol/L (98-107); Creatine Kinase < 20 U/L (55-170); Estimated Glomerular Filt Rate > 60 mL/min (>60); Globulin 2.7 g/dL (1.7-4.1); Glucose 119 mg/dL (70-100); HEMOLYSIS < 15 (0-50); Lipase 91 U/L (23-300); Potassium 4.1 mmol/L (3.4-5.1); Sodium 129 mmol/L (137-145); Total Protein 7.2 g/dL (6.3-8.2)
[2021-12-03 10:34] LABS: Troponin I < 0.012 ng/mL (0.01-0.034)
[2021-12-03 10:38] LABS: Procalcitonin 0.11 ng/mL (<0.5)
[2021-12-03 10:44] LABS: Amorphous Sediment Urine 1+; Bacteria Urine None Seen; Culture Indicated Urine Cult Not Indicated; RBC Urine None Seen (0-5/HPF); Squamous Epithelial Cell Urine 0-1 /HPF (0-5/HPF); WBC Urine None Seen (0-5/HPF)
[2021-12-03 10:47] LABS: COVID19 -Nasal RAPID Negative (Negative)
[2021-12-03] MEDS: DEXAMETHASONE 10 MG/ML VIAL IV (11:31)
[2021-12-03] MEDS: levETIRAcetam 750 MG in SODIUM CHLORIDE 0.9% 100 ML 430 MG IV (12:37)
[2021-12-03] MEDS: SODIUM CHLORIDE 0.9% 1,000 ML 150 ML IV (14:13)
--- NOTE | 2021-12-03 16:25 | CM.SWNOTE ---
Patient is a 50 yo male who was admitted to [facility] ED on 12/03/21 for Weakness, decline in health, stage 4 cancer. Pt has [employer] for insurance and his PCP is Dr. Rex Hyman. EMR was reviewed. Per ED MD, pt with gleoblastomy and awaiting consultation with pt's Oncologist Dr. Aleman to confirm if pt's symptoms need medical tx or if symptoms are from worsening mass. DAY TREATMENT CLINICIAN/ART THERAPIST Consult placed for end of life planning/discharge planning. SW met bedside with pt and spouse Shelly and explained role and they confirm that pt has been living with his cancer for about a year and recently has vision loss from his cancer and has become so weak and lost much of his leg strength and muscle mass. Spouse states they have been taking pt to outpt PT at [facility] but no PT had been available this week and spouse feels pt has significantly declined in health the past week and they obtained a w/c as pt cannot stand much at this time. Spouse inquired about HH and SW discussed at length the services and frequency of HH and provided HH Choice list of [facility]. [facility] can see pt sooner. Spouse feels HH would be beneficial and confirms that they have multiple supportive family members and local friends for assist. Spouse and pt also inquired about Hospice and SW discussed Hospice and Palliative Care and pt states that he realizes he is reaching the end of his life and his Goal of Care is to remain peaceful and comfortable with some quality of life and he really wants his family to have support and assist with next steps once he passes away. SW discussed the benefits to having the knowledgeable and supportive care of Hospice for grief counseling, end of life care, next steps after etc. Pt and spouse request Hospice referral and Info Visit and SW discussed two Hospice agencies and that [facility] not available by phone on Sat for new referral and therefore cannot confirm their availability today as they have been short staffed and full but made [facility] referral and [facility]ed clinicals to [facility] to review and requested Info Visit for the family tomorrow if possible. Spouse and pt confirm they do not want pt to be admitted to the hospital and goal is home with family and friend support. SW updated MD and RN and will follow up with [facility] in the morning to confirm they recieved the faxed referral and encourage Info Visit for tomorrow with family. MERLYN Gonzales
--- NOTE | 2021-12-04 13:03 | CM.SWNOTE ---
MACARIO followed up on [facility] referral faxed yesterday 12/03/21 and spoke to Inna and confirmed she has the referral and will call family today for Info Visit and can then order DME and can even likely open pt to Hospice services this week on Sat12/06/21 if pt and family agreeable to sign consents and ready for Hospice. MERLYN Gonzales
== END 2021-12-03 17:02 | disposition home or self-care (01) ==
PROVIDERS: Emergency Provider Emergency Medicine; PCP Family Medicine
DX: C71.4 Malignant neoplasm of occipital lobe (principal); R53.1 Weakness; E87.1 Hypo-osmolality and hyponatremia; R07.9 Chest pain, unspecified
CPT/HCPCS: 36415; 70450; 71045; 80053; 81001; 82550; 83605; 83690; 84145; 84484; 85025; 85610; 85730; 87040; 87635; 93005; 96361; 96365; 96375; 99284; C9803; J1100; J1953